=== PATIENT | female | born 1935 | race Hispanic/Latino ===

== ENCOUNTER → 2016-10-07 | Outpatient (CLI) | payer MEDICARE ==
--- NOTE | 2016-10-07 10:17 | XRay Report ---
ABDOMEN RADIOGRAPH INDICATION: Left lower quadrant pain. COMPARISON: None similar. FINDINGS: Frontal abdominal radiograph demonstrates nonobstructive bowel gas pattern. No focal suspicious calcifications, pneumatosis or pneumoperitoneum. Right kidney may be slightly low lying. Clear visualized lung bases. Some extrinsic clothing artifacts. Demineralized bones with moderate lumbar spondylosis, including disc narrowing, degenerative spurring and mild dextroscoliosis apex about L3-L4. Moderate bilateral hip degenerative changes as well. Prior bladder tacking surgery. CONCLUSION: No acute abdominal radiographic abnormality with few other findings, as above. Thank you for the opportunity to participate in this patient's care.
== END | disposition home or self-care (01) ==
LOC: SPVIMAG 10-06 14:56
PROVIDERS: ATTEND Internal Medicine
DX: R10.32 Left lower quadrant pain (principal); M47.896 Other spondylosis, lumbar region; M41.86 Other forms of scoliosis, lumbar region; M17.0 Bilateral primary osteoarthritis of knee; I10 Essential (primary) hypertension
CPT/HCPCS: 74000

== ENCOUNTER 2019-04-11 10:35 | Outpatient (CLI) | payer MEDICARE ==
--- NOTE | 2019-04-11 13:44 | Fluoroscopy Report ---
BARIUM SWALLOW Indication: K21.9Gastro-esophageal reflux disease without esophagitis. Technique: Single contrast barium technique utilized to evaluate the esophagus. FINDINGS: To begin the exam, swallowing was evaluated in the lateral position under direct fluorosco py. Swallowing was normal. A small web is identified from the anterior surface of the cervical esophagus near the level of C5. T his narrows the cervical esophageal lumen by approximately 20%. No high-grade narrowing is appreciate d. The remainder of the cervical and thoracic esophagus are normal caliber and mucosal pattern. No hi atal hernia was witnessed. Occasional tertiary contractions of the esophagus were witnessed consisten t with mild esophageal dysmotility. A barium tablet was administered which transverses the esophagus without difficulty. 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 This does not appear to s ignificantly obstruct. See above. Fluoroscopic time: 1.6 minutes Number of fluoroscopic images: 44 Signer Name: Juan Francisco Tran Jr, MD Signed: 04/11/2019 1:40 PM Workstation Name: [id number]
== END 2019-04-11 10:36 | disposition home or self-care (01) ==
LOC: FLUORO 10:35
PROVIDERS: ATTEND Otolaryngology
DX: K21.9 Gastro-esophageal reflux disease without esophagitis (principal)
CPT/HCPCS: 74220

== ENCOUNTER 2021-01-24 12:59 | Outpatient (CLI) | payer MEDICARE ==
--- NOTE | 2021-01-24 15:19 | XRay Report ---
LEFT SHOULDER 3 VIEWS INDICATION: ACUTE PAIN OF LEFT SHOULDER. COMPARISON: None. IMPRESSION: No acute osseous or soft tissue abnormality. Mild osteoarthritic changes are identifi ed. Signer Name: Juan Francisco Tran Jr, MD Signed: 01/24/2021 3:15 PM Workstation Name: [id number]
== END 2021-01-24 13:00 | disposition home or self-care (01) ==
LOC: SPVIMAG 12:59
PROVIDERS: ATTEND Nurse Practitioner
DX: M19.012 Primary osteoarthritis, left shoulder (principal)